=== PATIENT | male | born 1990 | race Caucasian/White ===

== ENCOUNTER 2020-06-02 18:56 | Emergency (ER) | payer MEDICAID, OTHER ==
[~2020-06-02] VITALS: Ht 177.8 cm; Wt 83.9 kg
[2020-06-02 19:05] VITALS: BP_SYST 113
[2020-06-02 21:33] VITALS: BP_SYST 112
== END 2020-06-02 21:33 | disposition home or self-care (01) ==
LOC: SED 18:56
DX: B34.9 Viral infection, unspecified (principal); R05 Cough
CPT/HCPCS: 71045; 99283